=== PATIENT | female | born 2000 | race Caucasian/White ===

== ENCOUNTER 2020-04-05 00:16 | Inpatient (IN) | payer OTHER ==
[~2020-04-05] VITALS: Ht 160 cm; Wt 80.3 kg
[2020-04-05] MEDS ORDERED: IRON 100 PLUS1 EACH PO (02:07)
--- NOTE | 2020-04-06 08:17 | PR ---
[facility] [address] [facility] [place] [address] Signed PP Progress Notes Datetime Report Generated by WILBERTO: 04/06/2020 08:17 SUBJECTIVE: [id number] Pain: Within Normal Limits Vital Signs: [id number] Vital Signs: Reviewed; Within Normal Limits Cardiovascular: Not Done Respiratory: Not Done Abdomen/Uterus: Abnormal Lochia: Normal Vulva/Perineum: Not Done Breasts: Not Done CVA Tenderness: Not Done Extremities: Normal Incision: Not Applicable Progress: Normal Exam Comments: Fundus firm, NT @ U-1. H/H 11.1/32.9, WBC 14.9, plat 164k IMPRESSION/PLAN/PROCEDURES: [id number] Impression: Normal Progression Plan: Continue Present Management Progress Notes: Doing well. Will probably D/C home in am. Signing Physician: Marleen Cantrell MD Copies: ~ *Electronically Signed* 04/06/20816 MARLEEN CANTRELL MD PATIENT NAME: RICHARD NGUYEN MARLEEN PROGRESS NOTE DATE OF : 00 PHYSICIAN: MARLEEN CANTRELL MD RPT #: [id number] REPORT IS CONFIDENTIAL AND NOT TO BE RELEASED WITHOUT AUTHORIZATION
--- NOTE | 2020-04-07 07:22 | PR ---
[facility] [address] [facility] [place] [address] Signed PP Progress Notes Datetime Report Generated by CPN: 04/07/2020 07:22 SUBJECTIVE: [id number] Pain: Within Normal Limits Vital Signs: [id number] Vital Signs: Reviewed; Within Normal Limits Cardiovascular: Not Done Respiratory: Not Done Abdomen/Uterus: Abnormal Lochia: Normal Vulva/Perineum: Not Done Breasts: Not Done CVA Tenderness: Not Done Extremities: Normal Incision: Not Applicable Progress: Abnormal Exam Comments: Fundus firm, NT @ U-2. IMPRESSION/PLAN/PROCEDURES: [id number] Impression: Normal Progression; Difficulties Plan: Discharge Progress Notes: She is doing well though still difficulty with breast feeding. I feel she is stable for D/C. Signing Physician: Marleen Cantrell MD Copies: ~ *Electronically Signed* 04/07/20721 MARLEEN CANTRELL MD PATIENT NAME: RICHARD NGUYEN MARLEEN PROGRESS NOTE DATE OF : 00 PHYSICIAN: MARLEEN CANTRELL MD RPT #: [id number] REPORT IS CONFIDENTIAL AND NOT TO BE RELEASED WITHOUT AUTHORIZATION
== END 2020-04-07 14:00 | disposition home or self-care (01) | DRG 807 ==
LOC: FBC 00:16
PROVIDERS: ADMIT Obstetrics & Gynecology; ATTEND Obstetrics & Gynecology
PROC: 10E0XZZ Delivery of Products of Conception, External Approach (ICD-10-PCS; principal; 2020-04-05)
PROC: 0KQM0ZZ Repair Perineum Muscle, Open Approach (ICD-10-PCS; 2020-04-05)
PROC: 10907ZC Drainage of Amniotic Fluid, Therapeutic from Products of Conception, Via Natural or Artificial Opening (ICD-10-PCS; 2020-04-05)
PROC: 3E0P7VZ Introduction of Hormone into Female Reproductive, Via Natural or Artificial Opening (ICD-10-PCS; 2020-04-05)
PROC: 00HU33Z Insertion of Infusion Device into Spinal Canal, Percutaneous Approach (ICD-10-PCS; 2020-04-05)
PROC: 3E0R3BZ Introduction of Anesthetic Agent into Spinal Canal, Percutaneous Approach (ICD-10-PCS; 2020-04-05)
DX: O48.0 Post-term pregnancy (principal); Z37.0 Single live birth; Z3A.40 40 weeks gestation of pregnancy; O70.1 Second degree perineal laceration during delivery; O69.81X0 Labor and delivery complicated by cord around neck, without compression, not applicable or unspecified; O26.13 Low weight gain in pregnancy, third trimester; O99.02 Anemia complicating childbirth; D64.9 Anemia, unspecified; Z20.2 Contact with and (suspected) exposure to infections with a predominantly sexual mode of transmission
CPT/HCPCS: 01960; 36415; 85027; A9270; J2210; J2590; J2795; J3010; J7121

== ENCOUNTER 2020-06-29 19:04 | Emergency (ER) | payer OTHER ==
[~2020-06-29] VITALS: Ht 152.4 cm; Wt 77.1 kg
[~2020-06-29 19:04] MED LIST: IRON 100 PLUS1 EACH PO
== END 2020-06-29 22:28 | disposition home or self-care (01) ==
LOC: ED 19:04
DX: S16.1XXA Strain of muscle, fascia and tendon at neck level, initial encounter (principal); S20.211A Contusion of right front wall of thorax, initial encounter; S40.011A Contusion of right shoulder, initial encounter; W22.8XXA Striking against or struck by other objects, initial encounter
CPT/HCPCS: 71101; 72040; 73030; 99283-25

== ENCOUNTER 2024-01-15 14:19 | Emergency (ER) | payer OTHER ==
[~2024-01-15] VITALS: Ht 152.4 cm; Wt 70.0 kg
[2024-01-15 16:02] VITALS: BP 112/73
== END 2024-01-15 16:02 | disposition home or self-care (01) ==
LOC: ED 14:19
DX: S83.92XA Sprain of unspecified site of left knee, initial encounter (principal); S80.02XA Contusion of left knee, initial encounter; W50.0XXA Accidental hit or strike by another person, initial encounter
CPT/HCPCS: 73560; 99283